=== PATIENT | male | born 1980 | race Caucasian/White ===

== ENCOUNTER 2017-10-08 06:42 | Emergency (ER) | payer BC, OTHER ==
[2017-10-08 07:14] LABS: Glucose,Whole Blood 319 mg/dL (75-99)
[2017-10-08] MEDS ORDERED: ACETAMINOPHEN TAB 500 MG TAB PO STA (07:31)
[2017-10-08] MEDS ORDERED: IBUPROFEN 600 MG TAB PO STA (07:32)
--- NOTE | 2017-10-08 07:52 | ED ---
General Adult HPI - General Chief complaint: Recheck/Abnormal Lab/Rx Stated complaint: diabetic issues, syncope Time Seen by Provider: 10/08/17 07:00 Source: patient, RN notes reviewed Mode of arrival: wheelchair Limitations: no limitations - History of Present Illness Initial comments: This is a 36-year-old male who presents emergency department with a history of diabetes. Patient comes in complaining that he woke up in the middle the night to feel good and at one point felt very lightheaded and almost passed out. Patient states she definitely did not pass out. Patient denies any chest pain difficulty breathing or shortness of breath. Patient denies any abdominal pain patient denies nausea vomiting diarrhea. Patient denies knowing that he has a fever even though here he does have a fever for 102.1 patient has no neck stiffness patient denies headache patient denies numbness or weakness patient states he got up and his sugar was all over the place but he thinks his meter isn't working. - Related Data Home Medications Medication Instructions Recorded Confirmed Insulin Regular, Human [Novolin R] 25 unit SQ HS 10/08/17 10/08/17 Allergies Allergy/AdvReac Type Severity Reaction Status Date / Time No Known Allergies Allergy Verified 10/08/17 07:14 Review of Systems ROS Statement: Those systems with pertinent positive or pertinent negative responses have been documented in the HPI. ROS Other: All systems not noted in ROS Statement are negative. Past Medical History Past Medical History: Asthma, Diabetes Mellitus History of Any Multi-Drug Resistant Organisms: None Reported Past Surgical History: No Surgical Hx Reported Past Psychological History: No Psychological Hx Reported Smoking Status: Never smoker Past Alcohol Use History: Occasional Past Drug Use History: None Reported General Exam - General Exam Comments Initial Comments: GENERAL: Patient is well-developed and well-nourished. Patient is nontoxic and well- hydrated and is in mild distress. ENT: Neck is soft and supple. No significant lymphadenopathy is noted. Oropharynx is clear. Moist mucous membranes. Neck has full range of motion without eliciting any pain. EYES: The sclera were anicteric and conjunctiva were pink and moist. Extraocular movements were intact and pupils were equal round and reactive to light. Eyelids were unremarkable. PULMONARY: Unlabored respirations. Good breath sounds bilaterally. No audible rales rhonchi or wheezing was noted. CARDIOVASCULAR: There is a regular rate and rhythm without any murmurs gallops or rubs. ABDOMEN: Soft and nontender with normal bowel sounds. No palpable organomegaly was noted. There is no palpable pulsatile mass. SKIN: Skin is clear with no lesions or rashes and otherwise unremarkable. NEUROLOGIC: Patient is alert and oriented x3. Cranial nerves II through XII are grossly intact. Motor and sensory are also intact. Normal speech, volume and content. Symmetrical smile. MUSCULOSKELETAL: Normal extremities with adequate strength and full range of motion. LYMPHATICS: No significant lymphadenopathy is noted PSYCHIATRIC: Normal psychiatric evaluation. Limitations: no limitations Course Vital Signs 10/08/17 10/08/17 10/08/17 06:46 08:39 09:32 Temperature 101 F H 102.0 F H 101.9 F H Pulse Rate 109 H 103 H 101 H Respiratory 20 18 18 Rate Blood Pressure 118/72 115/73 104/68 O2 Sat by Pulse 98 96 95 Oximetry Medical Decision Making - Medical Decision Making EKG shows sinus tachycardia [address] interval 228 QRS is 90 QT interval 334 QTC is 441. Patient's EKG shows no ST segment elevation or depression or T wave abnormalities are noted. I'll back into the room the patient was feeling considerably better and had no longer any symptoms of lightheadedness. Patient states he had no symptoms any recent fever or cough. Patient denies any nausea vomiting diarrhea per patient denies any rashes per patient denies any dysuria hematuria urinary frequency. - Lab Data Result diagrams: 10/08/17 08:05 10/08/17 08:05 Lab Results 10/08/17 10/08/17 10/08/17 Range/Units 06:55 08:05 08:05 WBC 11.3 H (3.8-10.6) k/uL RBC 5.05 (4.30-5.90) m/uL Hgb 15.0 (13.0-17.5) gm/dL Hct 43.5 (39.0-53.0) % MCV 86.3 (80.0-100.0) fL MCH 29.8 (25.0-35.0) pg MCHC 34.5 (31.0-37.0) g/dL RDW 12.4 (11.5-15.5) % Plt Count 223 (150-450) k/uL Neutrophils % 91 % Lymphocytes % 3 % Monocytes % 4 % Eosinophils % 2 % Basophils % 0 % Neutrophils # 10.2 H (1.3-7.7) k/uL Lymphocytes # 0.3 L (1.0-4.8) k/uL Monocytes # 0.5 (0-1.0) k/uL Eosinophils # 0.2 (0-0.7) k/uL Basophils # 0.0 (0-0.2) k/uL Sodium 137 (137-145) mmol/L Potassium 4.5 (3.5-5.1) mmol/L Chloride 103 (98-107) mmol/L Carbon Dioxide 24 (22-30) mmol/L Anion Gap 10 mmol/L BUN 20 (9-20) mg/dL Creatinine 0.82 (0.66-1.25) mg/dL Est GFR (CKD-EPI)AfAm >90 (>60 ml/min/1.73 sqM) Est GFR (CKD-EPI)NonAf >90 (>60 ml/min/1.73 sqM) Glucose 353 H (74-99) mg/dL POC Glucose (mg/dL) 319 H (75-99) mg/dL POC Glu Die Tripper ID Faith Fink Calcium 8.7 (8.4-10.2) mg/dL Total Bilirubin 0.4 (0.2-1.3) mg/dL AST 15 L (17-59) U/L ALT 29 (21-72) U/L Alkaline Phosphatase 74 (38-126) U/L Total Protein 6.9 (6.3-8.2) g/dL Albumin 4.0 (3.5-5.0) g/dL Influenza Type A RNA (Not Detectd) Influenza Type B (PCR) (Not Detectd) 10/08/17 10/08/17 Range/Units 08:05 08:57 WBC (3.8-10.6) k/uL RBC (4.30-5.90) m/uL Hgb (13.0-17.5) gm/dL Hct (39.0-53.0) % MCV (80.0-100.0) fL MCH (25.0-35.0) pg MCHC (31.0-37.0) g/dL RDW (11.5-15.5) % Plt Count (150-450) k/uL Neutrophils % % Lymphocytes % % Monocytes % % Eosinophils % % Basophils % % Neutrophils # (1.3-7.7) k/uL Lymphocytes # (1.0-4.8) k/uL Monocytes # (0-1.0) k/uL Eosinophils # (0-0.7) k/uL Basophils # (0-0.2) k/uL Sodium (137-145) mmol/L Potassium (3.5-5.1) mmol/L Chloride (98-107) mmol/L Carbon Dioxide (22-30) mmol/L Anion Gap mmol/L BUN (9-20) mg/dL Creatinine (0.66-1.25) mg/dL Est GFR (CKD-EPI)AfAm (>60 ml/min/1.73 sqM) Est GFR (CKD-EPI)NonAf (>60 ml/min/1.73 sqM) Glucose (74-99) mg/dL POC Glucose (mg/dL) 341 H (75-99) mg/dL POC Glu Die Tripper ID Edgard Vaughn Calcium (8.4-10.2) mg/dL Total Bilirubin (0.2-1.3) mg/dL AST (17-59) U/L ALT (21-72) U/L Alkaline Phosphatase (38-126) U/L Total Protein (6.3-8.2) g/dL Albumin (3.5-5.0) g/dL Influenza Type A RNA Not Detected (Not Detectd) Influenza Type B (PCR) Not Detected (Not Detectd) Disposition Clinical Impression: Viral syndrome, Dizziness Disposition: HOME SELF-CARE Condition: Good Instructions: Viral Syndrome (ED) Referrals: Julien Bernal MD [Primary Care Provider] - 1-2 days Time of Disposition: 09:43
--- NOTE | 2017-10-08 08:21 | XR ---
EXAMINATION TYPE: XR chest 2V DATE OF EXAM: 10/08/2017 COMPARISON: NONE HISTORY: Difficulty breathing TECHNIQUE: Frontal and lateral views of the chest are obtained. FINDINGS: There are overlying cardiac leads. Patchy basilar increased density at the left lung base is noted. No pneumothorax or pleural effusion. Heart size is small. Pulmonary vascularity and sydni ar e normal. There is bronchial wall thickening. IMPRESSION: Correlate for reactive airways disease or bronchitis, basilar atelectasis, follow-up rec ommended.
[2017-10-08 08:22] LABS: Basophils % (A) 0 %; Eosinophils # (A) 0.2 k/uL (0-0.7); Eosinophils % (A) 2 %; HCT 43.5 % (39.0-53.0); Lymphocytes # (A) 0.3 k/uL (1.0-4.8); Lymphocytes % (A) 3 %; MCH 29.8 pg (25.0-35.0); MCHC 34.5 g/dL (31.0-37.0); MCV 86.3 fL (80.0-100.0); Mean Platelet Volume 7.6; Monocytes # (A) 0.5 k/uL (0-1.0); Monocytes % (A) 4 %; Neutrophils # (A) 10.2 k/uL (1.3-7.7); Neutrophils % (A) 91 %; Platelet Count 223 k/uL (150-450); RBC 5.05 m/uL (4.30-5.90); RDW 12.4 % (11.5-15.5); WBC 11.3 k/uL (3.8-10.6)
[2017-10-08 08:39] VITALS: RESP 18
[2017-10-08 08:50] LABS: ALT 29 U/L (21-72); AST 15 U/L (17-59); Alkaline Phosphatase 74 U/L (38-126); Anion Gap 10 mmol/L; Blood Urea Nitrogen 20 mg/dL (9-20); Calcium 8.7 mg/dL (8.4-10.2); Carbon Dioxide 24 mmol/L (22-30); Chloride 103 mmol/L (98-107); Glucose 353 mg/dL (74-99); Potassium 4.5 mmol/L (3.5-5.1); Sodium 137 mmol/L (137-145); Total Bilirubin 0.4 mg/dL (0.2-1.3); Total Protein 6.9 g/dL (6.3-8.2)
[2017-10-08 09:00] LABS: Glucose,Whole Blood 341 mg/dL (75-99)
[2017-10-08] MEDS ORDERED: INSULIN ASPART 100 UNIT/ML 1 ML 10 ML VIAL SQ ONE (09:15)
[2017-10-08 09:51] LABS: Glucose,Whole Blood 313 mg/dL (75-99)
[2017-10-08 10:34] VITALS: BP 110/70; PULSE 90; TEMP 98.3
== END 2017-10-08 10:40 | disposition home or self-care (01) ==
LOC: EC 06:42
DX: B34.9 Viral infection, unspecified (principal); R42 Dizziness and giddiness; R00.0 Tachycardia, unspecified; E11.9 Type 2 diabetes mellitus without complications; Z79.4 Long term (current) use of insulin
CPT/HCPCS: 36415; 71046; 80053; 85025; 87502; 93005; 99284

== ENCOUNTER → 2020-01-21 | Outpatient (CLI) | payer BC ==
--- NOTE | 2020-01-21 15:19 | XR ---
Bilateral hips HISTORY: Right hip pain, bilateral hip pain 2 views of each hip are submitted. Bone mineralization, joint spaces and alignment are maintained. IMPRESSION: Normal hips.
--- NOTE | 2020-01-21 15:20 | XR ---
Bilateral knees HISTORY: Pain For views of each knee are submitted. Bone mineralization, joint spaces and alignment are maintained. No evident joint effusion. IMPRESSION: Normal knees.
== END | disposition home or self-care (01) ==
LOC: RADXRMAIN 13:40
PROVIDERS: ATTEND Family Medicine
DX: M25.551 Pain in right hip (principal); M25.562 Pain in left knee
CPT/HCPCS: 73521

== ENCOUNTER 2021-04-26 08:17 | Day surgery (SDC) | payer OTHER ==
[2021-04-25 08:45] VITALS: BMI 26.4
[2021-04-26] MEDS ORDERED: LIDOCAINE 1% (10MG/ML) FOR IV START INTRADERMA ONE (08:37)
[2021-04-26 08:57] VITALS: RESP 16; TEMP 97.1
[2021-04-26] MEDS ORDERED: LACTATED RINGERS 1,000 ML IV ONE (08:58)
[2021-04-26 09:00] LABS: Glucose,Whole Blood 108 mg/dL (75-99)
[2021-04-26] MEDS ORDERED: MIDAZOLAM 2 MG/2 ML VIAL ONE (09:04)
[2021-04-26] MEDS ORDERED: fentaNYL (PF) 50 MCG/ML 2 ML AMP ONE (09:04)
[2021-04-26] MEDS ORDERED: LACTATED RINGERS 1,000 ML IV SCH (09:15)
[2021-04-26 10:01] VITALS: BP 146/74; PULSE 68
[2021-04-26] MEDS ORDERED: IV FLUID CONTINUATION 1,000 ML IV ONE (10:01)
[2021-04-26 10:44] LABS: Glucose,CSF 65 mg/dL (40-70); Total Protein,CSF 110 mg/dL (12-60)
[2021-04-26 10:46] LABS: ALT 14 U/L (4-49)
[2021-04-26 11:26] LABS: AST 29 U/L (17-59)
--- NOTE | 2021-04-26 13:29 | P.PCN ---
Date of Procedure: 04/26/21 Description of Procedure: Procedure: 1. Lumbar puncture for CSF collection PREOPERATIVE DIAGNOSIS: Abnormal MRI to rule out multiple sclerosis POSTOPERATIVE DIAGNOSIS: Abnormal MRI results to rule out multiple sclerosis SURGEON: Bijan Lucas ANESTHESIA: Local with 1% lidocaine, and IV sedation : Versed and fentanyl EBL: None. Specimen removed: 3 mL of CSF in each collecting tube X4 PROCEDURE INDICATION: The patient had history of patient MRI showed abnormal findings suspicious of multiple sclerosis . Consulted for lumbar puncture for CSF collection send it for analysis. PROCEDURE DESCRIPTION: The patient was seen and identified. Risks, benefits, complications, and alternatives were discussed with the patient. The patient agreed to proceed with the procedure and signed the consent, and vital signs were stable. Patient was taken to the procedure area, and time out was completed. The patient was placed in sitting position on procedure. . The lumbosacral area was prepped and draped in the usual sterile fashion. Critical pause was taken. Vital signs were closely monitored during the procedure. Posterior superior iliac crest landmarks was identified . The midline lumbar space also identified. Approximately at the level of L4-L5 interspinous space, skin and deeper tissues were localized with 5 mL of 1% lidocaine. Using a 22 gauge 3.5 spinal needle entered into subarachnoid space, with 1 attempt. Clear CSF came out of the spinal needle. 3 mL of CSF fluid collected in each tube 4. Needle was withdrawn intact, skin was cleansed, and bandages were applied. COMPLICATIONS: None. DISPOSITION / PLANS: The patient was placed in a supine position and transferred to the recovery area in a stable condition for observation. Patient was discharged from the recovery room after meeting discharge criteria. Home discharge instructions given to the patient by the staff. The patient was reexamined prior to discharge.
[2021-04-26 14:26] LABS: Appearance,CSF Hazy; CSF Tube Number 3
[2021-04-26 14:27] LABS: CSF Tube Volume 3; Nucleated Cells, CSF 0 u/L (0-5); Red Blood Cell,CSF 1350 u/L (0-10)
[2021-04-26 14:28] LABS: Red Blood Cell, CSF Crenated 0 %; Red Blood Cell, CSF Fresh 100 %
[2021-04-27 06:36] LABS: Rheumatoid Factor, Qnt <10 IU/mL (0-15)
[2021-04-27 13:19] LABS: IgG - CSF 21.7 mg/dL (0.0 - 3.4); IgG Synthesis Rate 71.97 mg/day (0.00 - 3.00); IgG/Albumin Index (CSF) 1.58 (0.00 - 0.77)
[2021-04-29 11:23] LABS: VDRL, Qualitative CSF Nonreactive (Nonreactive)
== END 2021-04-26 10:06 | disposition home or self-care (01) ==
LOC: ORPAIN 08:17
DX: R94.02 Abnormal brain scan (principal)
CPT/HCPCS: 86592; 86235 ×3; 88108; 84157; 82945; 82040; 82042; 82784; 83916; 84436; 84443; 84450; 84460; 86431; 89050; 86618; 86780; 86038; 86225; 87801; 62270; J2250; J3010; 99152; 99153

== ENCOUNTER 2021-04-29 09:22 | Emergency (ER) | payer OTHER ==
[2021-04-29] MEDS ORDERED: diphenhydrAMINE 50 MG/ML 1 ML VIAL IVP STA (10:01)
[2021-04-29] MEDS ORDERED: METOCLOPRAMIDE 5 MG/ML 2 ML VIAL IVP STA (10:01)
[2021-04-29] MEDS ORDERED: CAFFEINE-SODIUM BENZOATE 1,000 MG in SODIUM CHLORIDE 0.9% 1,000 ML IVPB ONE (10:30)
--- NOTE | 2021-04-29 10:44 | ED ---
Headache HPI - General Chief Complaint: Headache Stated Complaint: Neck Pain Time Seen by Provider: 04/29/21 09:48 Source: RN notes reviewed Mode of arrival: ambulatory Limitations: no limitations - History of Present Illness Initial Comments: Is a 40-year-old male presents emergency Department chief complaint of headache. Patient states that he is a lumbar puncture on Sunday he states he had does to rule out MS Patient states that he started having a headache and some back discomfort yesterday states it is worse when he sits up he states last sent the headache was more persistent. No fevers or chills no night sweats he did not contact anesthesiologist who performed the procedure. Patient denies any vomiting slight nausea no other complaints. - Related Data Home Medications Medication Instructions Recorded Confirmed Insulin Glargine,Hum.rec.anlog 30 unit SQ QAM 04/25/21 04/26/21 [Basaglar Parmjitpen U-100] Allergies Allergy/AdvReac Type Severity Reaction Status Date / Time No Known Allergies Allergy Verified 04/29/21 09:30 Review of Systems ROS Statement: Those systems with pertinent positive or pertinent negative responses have been documented in the HPI. ROS Other: All systems not noted in ROS Statement are negative. Past Medical History Past Medical History: Asthma, Diabetes Mellitus Additional Past Medical History / Comment(s): past hx of asthma (no current rx)., states recently hospitalized at [facility] for cold sensation in face & arm that comes and goes-states possible M.S. History of Any Multi-Drug Resistant Organisms: None Reported Past Surgical History: No Surgical Hx Reported Past Anesthesia/Blood Transfusion Reactions: Motion Sickness Additional Past Anesthesia/Blood Transfusion Reaction / Comment(s): no anesthesia hx Past Psychological History: No Psychological Hx Reported Smoking Status: Former smoker Past Alcohol Use History: Occasional Past Drug Use History: None Reported - Past Family History Mother Family Medical History: No Reported History General Exam Limitations: no limitations General appearance: alert, in no apparent distress Head exam: Present: atraumatic, normocephalic, normal inspection Eye exam: Present: normal appearance, PERRL, EOMI. Absent: scleral icterus, conjunctival injection, periorbital swelling ENT exam: Present: normal exam, normal oropharynx, mucous membranes moist Neck exam: Present: normal inspection, full ROM. Absent: tenderness, meningismus, lymphadenopathy Respiratory exam: Present: normal lung sounds bilaterally. Absent: respiratory distress, wheezes, rales, rhonchi, stridor Cardiovascular Exam: Present: regular rate, normal rhythm, normal heart sounds. Absent: systolic murmur, diastolic murmur, rubs, gallop, clicks Neurological exam: Present: alert, oriented X3, CN II-XII intact, reflexes normal. Absent: motor sensory deficit Skin exam: Present: warm, dry, intact, normal color. Absent: rash Course Vital Signs 04/29/21 04/29/21 09:27 12:00 Temperature 98 F Pulse Rate 81 86 Respiratory 20 18 Rate Blood Pressure 137/93 132/82 O2 Sat by Pulse 99 98 Oximetry Medical Decision Making - Medical Decision Making 40-year-old male presented for headache after LP. Patient was given IV fluids, IV caffeine, Benadryl Reglan symptoms have completely resolved he has no headache no neurological deficits will be discharged in stable condition. - Lab Data Result diagrams: 04/29/21 10:27 Lab Results 04/29/21 Range/Units 10:27 WBC 12.0 H (3.8-10.6) k/uL RBC 4.69 (4.30-5.90) m/uL Hgb 14.6 (13.0-17.5) gm/dL Hct 43.6 (39.0-53.0) % MCV 92.9 (80.0-100.0) fL MCH 31.2 (25.0-35.0) pg MCHC 33.6 (31.0-37.0) g/dL RDW 12.6 (11.5-15.5) % Plt Count 265 (150-450) k/uL MPV 8.2 Neutrophils % 77 % Lymphocytes % 15 % Monocytes % 4 % Eosinophils % 3 % Basophils % 1 % Neutrophils # 9.2 H (1.3-7.7) k/uL Lymphocytes # 1.8 (1.0-4.8) k/uL Monocytes # 0.5 (0-1.0) k/uL Eosinophils # 0.3 (0-0.7) k/uL Basophils # 0.1 (0-0.2) k/uL Disposition Clinical Impression: Headache Disposition: HOME SELF-CARE Condition: Stable Instructions (If sedation given, give patient instructions): Acute Headache (ED) Additional Instructions: Please return to the Emergency Department if symptoms worsen or any other concerns. Is patient prescribed a controlled substance at d/c from ED?: No Referrals: Julien Bernal MD [Primary Care Provider] - 1-2 days Time of Disposition: 12:33
[2021-04-29 11:05] LABS: Basophils # (A) 0.1 k/uL (0-0.2); Basophils % (A) 1 %; Eosinophils # (A) 0.3 k/uL (0-0.7); Eosinophils % (A) 3 %; HCT 43.6 % (39.0-53.0); HGB 14.6 gm/dL (13.0-17.5); Lymphocytes # (A) 1.8 k/uL (1.0-4.8); Lymphocytes % (A) 15 %; MCH 31.2 pg (25.0-35.0); MCHC 33.6 g/dL (31.0-37.0); MCV 92.9 fL (80.0-100.0); Mean Platelet Volume 8.2; Monocytes # (A) 0.5 k/uL (0-1.0); Monocytes % (A) 4 %; Neutrophils # (A) 9.2 k/uL (1.3-7.7); Neutrophils % (A) 77 %; Platelet Count 265 k/uL (150-450); RBC 4.69 m/uL (4.30-5.90); RDW 12.6 % (11.5-15.5)
[2021-04-29] MEDS ORDERED: KETOROLAC 15 MG/ML 1 ML VIAL IVP STA (11:44)
[2021-04-29 12:23] VITALS: BP 132/82; PULSE 86; RESP 18
[2021-04-29 13:02] VITALS: TEMP 98.2
== END 2021-04-29 12:55 | disposition home or self-care (01) ==
LOC: EC 09:22
DX: R51.9 Headache, unspecified (principal); M54.9 Dorsalgia, unspecified; E11.9 Type 2 diabetes mellitus without complications; J45.909 Unspecified asthma, uncomplicated; Z79.4 Long term (current) use of insulin; Z87.891 Personal history of nicotine dependence
CPT/HCPCS: 36415; 85025; 99283; 96365; 96375; J1200; J2765

== ENCOUNTER 2022-05-06 11:56 | Emergency (ER) | payer OTHER ==
[2022-05-06] MEDS ORDERED: KETOROLAC 15 MG/ML 1 ML VIAL IVP STA (13:04)
[2022-05-06] MEDS ORDERED: SODIUM CHLORIDE 0.9% 500 ML 500 ML IV ONE (13:04)
[2022-05-06 14:00] LABS: Appearance,Urine Clear (Clear); Basophils # (A) 0.1 k/uL (0-0.2); Basophils % (A) 1 %; Bilirubin,Urine Negative (Negative); Blood,Urine Negative (Negative); Color,Urine Light Yellow; Eosinophils # (A) 0.3 k/uL (0-0.7); Eosinophils % (A) 3 %; Glucose,Urine (UA) Negative (Negative); HCT 42.2 % (39.0-53.0); HGB 14.6 gm/dL (13.0-17.5); Ketones,Urine Negative (Negative); Leukocyte Esterase,Urine Negative (Negative); Lymphocytes # (A) 0.8 k/uL (1.0-4.8); Lymphocytes % (A) 10 %; MCH 31.2 pg (25.0-35.0); MCHC 34.7 g/dL (31.0-37.0); MCV 89.9 fL (80.0-100.0); Mean Platelet Volume 8.6; Monocytes # (A) 0.5 k/uL (0-1.0); Monocytes % (A) 6 %; Neutrophils # (A) 6.3 k/uL (1.3-7.7); Neutrophils % (A) 77 %; Nitrite,Urine Negative (Negative); Platelet Count 222 k/uL (150-450); Protein,Urine Negative (Negative); RBC 4.69 m/uL (4.30-5.90); RDW 12.8 % (11.5-15.5); Specific Gravity,Urine 1.013 (1.001-1.035); Urobilinogen,Urine <2.0 mg/dL (<2.0); WBC 8.2 k/uL (3.8-10.6)
[2022-05-06 14:10] LABS: ALT 24 U/L (4-49); AST 21 U/L (17-59); African American GFR (CKD) >90 (>60 ml/min/1.73 sqM); Albumin 4.8 g/dL (3.5-5.0); Alkaline Phosphatase 61 U/L (38-126); Anion Gap 12 mmol/L; Blood Urea Nitrogen 12 mg/dL (9-20); Calcium 8.7 mg/dL (8.4-10.2); Carbon Dioxide 24 mmol/L (22-30); Chloride 103 mmol/L (98-107); Glucose 85 mg/dL (74-99); Non-African American GFR(CKD) >90 (>60 ml/min/1.73 sqM); Potassium 4.2 mmol/L (3.5-5.1); Sodium 139 mmol/L (137-145); Total Bilirubin 0.5 mg/dL (0.2-1.3); Total Protein 7.9 g/dL (6.3-8.2)
--- NOTE | 2022-05-06 14:14 | ED ---
General Adult HPI - General Chief complaint: Back Pain/Injury Stated complaint: pain Time Seen by Provider: 05/06/22 12:32 Source: patient Mode of arrival: ambulatory Limitations: no limitations - History of Present Illness Initial comments: 41 year-old male patient presents for reports of generalized pain. States it started on as an ache in his lower back. Then he started to have pain in his knees and hips. States now the pain is generalized, across his chest, his skin feels tender, and his hands hurt. He states he did have chills last night. Denies any known fever, sore throat, nasal congestion, or cough. Denies any nausea, vomiting, or difficulty eating. States he did take Tylenol last night without much relief. He does have history of MS and has been taking Dimethyl Fumarate for the last 6 months. These symptoms are not typical of his usual MS symptoms which usually includes ataxia and incoordination. Patient denies any recent rash, abdominal pain, diarrhea, constipation, numbness, tingling, dizziness, weakness, hematuria, dysuria, urinary urgency, urinary frequency, visual changes, or any other complaints. - Related Data Home Medications Medication Instructions Recorded Confirmed Insulin Glargine,Hum.rec.anlog 30 unit SQ QAM 04/25/21 04/26/21 [Basaglar Kwikpen U-100] Previous Rx's Medication Instructions Recorded Ibuprofen [Motrin] 600 mg PO Q8HR PRN #30 tab 05/06/22 Allergies Allergy/AdvReac Type Severity Reaction Status Date / Time No Known Allergies Allergy Verified 05/06/22 12:15 Review of Systems ROS Statement: Those systems with pertinent positive or pertinent negative responses have been documented in the HPI. ROS Other: All systems not noted in ROS Statement are negative. Past Medical History Past Medical History: Asthma, Diabetes Mellitus Additional Past Medical History / Comment(s): past hx of asthma (no current rx)., states recently hospitalized at [facility] in [place] for cold sensation in face & arm that comes and goes-states possible M.S. History of Any Multi-Drug Resistant Organisms: None Reported Past Surgical History: No Surgical Hx Reported Past Anesthesia/Blood Transfusion Reactions: Motion Sickness Additional Past Anesthesia/Blood Transfusion Reaction / Comment(s): no anesthesia hx Past Psychological History: No Psychological Hx Reported Smoking Status: Former smoker Past Alcohol Use History: Occasional Past Drug Use History: None Reported - Past Family History Mother Family Medical History: No Reported History General Exam Limitations: no limitations General appearance: alert, in no apparent distress, other (This is a well- developed, well-nourished adult male in no acute distress.) Eye exam: Present: normal appearance, PERRL, EOMI. Absent: scleral icterus, conjunctival injection, periorbital swelling ENT exam: Present: normal exam, normal oropharynx, mucous membranes moist Respiratory exam: Present: normal lung sounds bilaterally. Absent: respiratory distress, wheezes, rales, rhonchi, stridor Cardiovascular Exam: Present: regular rate, normal rhythm, normal heart sounds. Absent: systolic murmur, diastolic murmur, rubs, gallop, clicks GI/Abdominal exam: Present: soft, normal bowel sounds. Absent: distended, tenderness, guarding, rebound, rigid Back exam: Present: normal inspection. Absent: vertebral tenderness Neurological exam: Present: alert, oriented X3, CN II-XII intact Psychiatric exam: Present: normal affect, normal mood Skin exam: Present: warm, dry, intact, normal color. Absent: rash Course Vital Signs 05/06/22 05/06/22 05/06/22 12:15 14:33 16:02 Temperature 98.8 F 99.3 F Pulse Rate 79 80 84 Respiratory 16 18 16 Rate Blood Pressure 122/78 124/73 120/73 O2 Sat by Pulse 99 100 100 Oximetry EKG Findings - EKG Comments: EKG Findings:: EKG obtained at 1355 shows sinus rhythm with a rate of 76, [place] interval 139, QRS duration 106, QT 360, QTC 391. No evidence of ST elevation or depression. Medical Decision Making - Medical Decision Making 41-year-old male patient presented to the emergency department today reporting generalized body pain and joint pain. Started on and worsened through to today. He does have history of MS. These symptoms are not consistent with his usual MS symptoms. Labs reviewed and are unremarkable. Chest x-ray negativ e. Covid test negative. Did discuss possibility of MS exacerbation though symptoms are atypical. Discussed risks versus benefits of high-dose corticosteroids for relapse, review shared decision making and decided against using steroids at this time. He will contact his neurologist on Sunday to uss his symptoms. He is discharged home with prescription for ibuprofen given starter packs. Return parameters were discussed in detail. He verbalizes understanding and feels comfortable with discharge. My attending is Dr. Lind. - Lab Data Result diagrams: 05/06/22 13:44 05/06/22 13:44 Lab Results 05/06/22 05/06/22 05/06/22 Range/Units 12:33 13:44 13:44 WBC 8.2 (3.8-10.6) k/uL RBC 4.69 (4.30-5.90) m/uL Hgb 14.6 (13.0-17.5) gm/dL Hct 42.2 (39.0-53.0) % MCV 89.9 (80.0-100.0) fL MCH 31.2 (25.0-35.0) pg MCHC 34.7 (31.0-37.0) g/dL RDW 12.8 (11.5-15.5) % Plt Count 222 (150-450) k/uL MPV 8.6 Neutrophils % 77 % Lymphocytes % 10 % Monocytes % 6 % Eosinophils % 3 % Basophils % 1 % Neutrophils # 6.3 (1.3-7.7) k/uL Lymphocytes # 0.8 L (1.0-4.8) k/uL Monocytes # 0.5 (0-1.0) k/uL Eosinophils # 0.3 (0-0.7) k/uL Basophils # 0.1 (0-0.2) k/uL Sodium (137-145) mmol/L Potassium (3.5-5.1) mmol/L Chloride (98-107) mmol/L Carbon Dioxide (22-30) mmol/L Anion Gap mmol/L BUN (9-20) mg/dL Creatinine (0.66-1.25) mg/dL Est GFR (CKD-EPI)AfAm (>60 ml/min/1.73 sqM) Est GFR (CKD-EPI)NonAf (>60 ml/min/1.73 sqM) Glucose (74-99) mg/dL Calcium (8.4-10.2) mg/dL Total Bilirubin (0.2-1.3) mg/dL AST (17-59) U/L ALT (4-49) U/L Alkaline Phosphatase (38-126) U/L Troponin I (0.000-0.034) ng/mL Total Protein (6.3-8.2) g/dL Albumin (3.5-5.0) g/dL Urine Color Light Yellow Urine Appearance Clear (Clear) Urine pH 6.0 (5.0-8.0) Ur Specific [place] 1.013 (1.001-1.035) Urine Protein Negative (Negative) Urine Glucose (UA) Negative (Negative) Urine Ketones Negative (Negative) Urine Blood Negative (Negative) Urine Nitrite Negative (Negative) Urine Bilirubin Negative (Negative) Urine Urobilinogen <2.0 (<2.0) mg/dL Ur Leukocyte Esterase Negative (Negative) Coronavirus (PCR) Not Detected (Not Detectd) 05/06/22 05/06/22 Range/Units 13:44 13:44 WBC (3.8-10.6) k/uL RBC (4.30-5.90) m/uL Hgb (13.0-17.5) gm/dL Hct (39.0-53.0) % MCV (80.0-100.0) fL MCH (25.0-35.0) pg MCHC (31.0-37.0) g/dL RDW (11.5-15.5) % Plt Count (150-450) k/uL MPV Neutrophils % % Lymphocytes % % Monocytes % % Eosinophils % % Basophils % % Neutrophils # (1.3-7.7) k/uL Lymphocytes # (1.0-4.8) k/uL Monocytes # (0-1.0) k/uL Eosinophils # (0-0.7) k/uL Basophils # (0-0.2) k/uL Sodium 139 (137-145) mmol/L Potassium 4.2 (3.5-5.1) mmol/L Chloride 103 (98-107) mmol/L Carbon Dioxide 24 (22-30) mmol/L Anion Gap 12 mmol/L BUN 12 (9-20) mg/dL Creatinine 0.81 (0.66-1.25) mg/dL Est GFR (CKD-EPI)AfAm >90 (>60 ml/min/1.73 sqM) Est GFR (CKD-EPI)NonAf >90 (>60 ml/min/1.73 sqM) Glucose 85 (74-99) mg/dL Calcium 8.7 (8.4-10.2) mg/dL Total Bilirubin 0.5 (0.2-1.3) mg/dL AST 21 (17-59) U/L ALT 24 (4-49) U/L Alkaline Phosphatase 61 (38-126) U/L Troponin I <0.012 (0.000-0.034) ng/mL Total Protein 7.9 (6.3-8.2) g/dL Albumin 4.8 (3.5-5.0) g/dL Urine Color Urine Appearance (Clear) Urine pH (5.0-8.0) Ur Specific [place] (1.001-1.035) Urine Protein (Negative) Urine Glucose (UA) (Negative) Urine Ketones (Negative) Urine Blood (Negative) Urine Nitrite (Negative) Urine Bilirubin (Negative) Urine Urobilinogen (<2.0) mg/dL Ur Leukocyte Esterase (Negative) Coronavirus (PCR) (Not Detectd) - Radiology Data Radiology results: report reviewed, image reviewed Two-view x-ray of the chest is obtained. Report is reviewed in its entirety. Impression by Dr. Ro shows no acute cardio pulmonary disease/process. Disposition Clinical Impression: Joint pain, Body aches Disposition: HOME SELF-CARE Condition: Good Instructions (If sedation given, give patient instructions): Arthralgia (ED) Additional Instructions: Take medications as directed. Contact her neurologist on Sunday to inform them of your new symptoms. Rest. Return to the emergency department for any new, worsening, or concerning symptoms. Prescriptions: Ibuprofen [Motrin] 600 mg PO Q8HR PRN #30 tab PRN Reason: Pain Is patient prescribed a controlled substance at d/c from ED?: No Referrals: Julien Bernal MD [Primary Care Provider] - 1-2 days Time of Disposition: 15:46
[2022-05-06] MEDS ORDERED: ONDANSETRON 4 MG/2 ML VIAL IVP STA (14:58)
[2022-05-06] MEDS ORDERED: MORPHINE SULFATE 4 MG/ML SYRINGE IVP STA (14:58)
--- NOTE | 2022-05-06 15:14 | XR ---
EXAMINATION TYPE: XR chest 2V DATE OF EXAM: 05/06/2022 2:41 PM COMPARISON: Chest x-ray 10/09/20192017 TECHNIQUE: XR chest 2V . CLINICAL INDICATION:Male, 41 years old with history of Body aches; Chills; Chest pain; FINDINGS: Lungs/Pleura: There is no evidence of pleural effusion, focal consolidation, or pneumothorax. Pulmonary vascularity: Unremarkable. Heart/mediastinum: Cardiomediastinal silhouette is unremarkable. Musculoskeletal: No acute osseous pathology. IMPRESSION: No acute cardiopulmonary disease/process.
[2022-05-06] MEDS ORDERED: ACET/COD 300 MG/30 MG STARTER PACK 6 TAB BTL PO STA (15:46)
[2022-05-06] MEDS ORDERED: CYCLOBENZAPRINE 10MG STARTER 3 TAB BTL PO STA (15:46)
[2022-05-06 16:05] VITALS: BP 120/73; PULSE 84; RESP 16; TEMP 99.3
== END 2022-05-06 16:04 | disposition home or self-care (01) ==
LOC: EC 11:56
DX: M25.551 Pain in right hip (principal); M25.552 Pain in left hip; M25.561 Pain in right knee; M25.562 Pain in left knee; J45.909 Unspecified asthma, uncomplicated; E11.9 Type 2 diabetes mellitus without complications; Z79.4 Long term (current) use of insulin; Z87.891 Personal history of nicotine dependence; Z20.822 Contact with and (suspected) exposure to COVID-19
CPT/HCPCS: 36415; 93005; 80053; 84484; 85025; 81003; 87635; 71046; 99284; 96374; 96361; 96375; J2270; J2405; J1885

== ENCOUNTER → 2023-08-23 | Outpatient (CLI) | payer OTHER ==
--- NOTE | 2023-08-24 10:45 | MR ---
EXAMINATION TYPE: MR shoulder LT wo con DATE OF EXAM: 08/23/2023 COMPARISON: Outside radiograph 07/02/2023 HISTORY: 42-year-old male M25.512, LEFT SHOULDER PAIN WHEN RAISING HIS ARM ABOVE HIS HEAD X2 MONTHS TECHNIQUE: Multiplanar, multisequence imaging of the left shoulder is performed without contrast. FINDINGS: The long head biceps tendon appears intact and appropriately situated along the bicipital groove. The subscapularis tendon is intact. AC joint is intact. Only minimal capsular hypertrophy is noted. Both supraspinatus and infraspinatus tendons are intact. No atrophy of the rotator cuff musculature. Trace fluid within the subacromial bursa. There is a tear of the superior labrum that extends to the posterior aspect of the superior labrum an d may swelling around to involve the anterior and inferior labrum as well. There is an definite meniscus thickening of the axillary recess. Additional edematous soft tissue rep lacement of the rotator cuff interval. The glenohumeral joint is intact. No significant joint effusion. No Hill-Sachs deformity or os acromiale. No suspicious bone marrow replacement. There is patchy red m arrow which can be seen with anemia, obesity, smoking, chronic disease. IMPRESSION: 1. No rotator cuff tear. 2. Findings suggest underlying labral tear. This may swing around 180 degrees from the superior labru m and anteriorly down to the inferior labrum. 3. Edematous soft tissue thickening at the axillary recess. Given the presence of edematous soft tiss ue replacement in the rotator cuff interval as well, consider adhesive capsulitis. Superior and infer ior glenoid humeral ligament sprains would be the alternative consideration.
== END | disposition home or self-care (01) ==
LOC: RADMRIMAIN 12:51
PROVIDERS: ATTEND Orthopaedic Surgery
DX: M25.512 Pain in left shoulder (principal); R60.0 Localized edema

== ENCOUNTER 2023-09-14 08:42 | Day surgery (SDC) | payer OTHER ==
[2023-09-11 15:18] VITALS: BMI 27.8
--- NOTE | 2023-09-13 10:29 | P.HPOR ---
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 He notes its worsening. He tried medications along with therapy without sig nificant relief. Review of Systems Per HPI Past Medical History Past Medical History: Asthma, Diabetes Mellitus Additional Past Medical History / Comment(s): past hx of asthma (no current rx)., MS, FROZEN LT SHOULDER History of Any Multi-Drug Resistant Organisms: None Reported Past Surgical History: No Surgical Hx Reported Past Anesthesia/Blood Transfusion Reactions: Motion Sickness Additional Past Anesthesia/Blood Transfusion Reaction / Comment(s): no anesthesia hx Smoking Status: Former smoker - Past Family History Mother Family Medical History: No Reported History Medications and Allergies Home Medications Medication Instructions Recorded Confirmed Type Cyanocobalamin (Vitamin B-12) 2,500 mcg PO DAILY 09/11/23 09/11/23 History [Vitamin B-12] Dimethyl Fumarate 240 mg PO BID 09/11/23 09/11/23 History Insulin Degludec [Tresiba] 30 units SQ DAILY 09/11/23 09/11/23 History Allergies Allergy/AdvReac Type Severity Reaction Status Date / Time No Known Allergies Allergy Verified 09/11/23 14:57 Physical Examination - Shoulder left Tenderness with palpation: anterior, bicipital groove Pain: with abduction, with forward flexion ROM: forward flexion: 100 degrees (Active and passive) ROM: internal rotation: lower lumbar ROM: external rotation: 50 degrees Strength: abduction: 5/5 Strength: forward flexion: 5/5 Strength: external rotation: 5/5 Tests: internal impingement tests: positive, external impingment tests: positive Results She is a well-developed well-nourished male proximal 6 foot tall, 204 pounds a mesomorphic habits. HEENT exam is nonfocal, neck supple. He is tender about the left shoulder anterior. He has limited passive range of motion. Hills, Neer sign, and speed test are positive. His distal neurovascular exam appears intact in the left upper extremity. - Diagnostic results Shoulder MRI: image reviewed (MRI of the left shoulder shows no definite rotator cuff tear.) Assessment and Plan Assessment: Left shoulder adhesive capsulitis Insulin-dependent diabetes Plan: I talked to the patient length regarding his condition along with treatment options. At this point is quite symptomatic and limited because of pain and stiffness. After a thorough discussion he opts to proceed with manipulation under anesthesia of the left shoulder with a subacromial cortisone injection. Risks and benefits were discussed at length in layman's terms.
[~2023-09-14 08:42] MED LIST: MIDAZOLAM 2 MG/2 ML VIAL IV PRN; SCOPOLAMINE 1 MG/72 HR PATCH TRANSDERM ONE
[2023-09-14 09:28] LABS: Glucose,Whole Blood 130 mg/dL (70-110)
[2023-09-14] MEDS: ONDANSETRON 4 MG/2 ML VIAL IVP ONE (09:34)
[2023-09-14] MEDS: LACTATED RINGERS 1,000 ML IV SCH (09:34)
[2023-09-14] MEDS: DEXAMETHASONE SOD PHOSPHATE 4 MG/ML 1 ML VIAL IV ONE (09:34)
[2023-09-14 09:56] VITALS: RESP 16
[2023-09-14] MEDS ORDERED: PROPOFOL 10 MG/ML 20 ML VIAL IV ONE (10:02)
[2023-09-14] MEDS ORDERED: MIDAZOLAM 2 MG/2 ML VIAL ONE (10:02)
[2023-09-14] MEDS: methylPREDNISolone ACETATE 80 MG/ML 1 ML VIAL MISCELLANE ONE (10:07)
[2023-09-14] MEDS: BUPIVACAINE (PF) 0.25% 30 ML VIAL MISCELLANE ONE (10:07)
--- NOTE | 2023-09-14 10:13 | P.OP ---
Date of Procedure: 09/14/23 Preoperative Diagnosis: Left shoulder adhesive capsulitis Postoperative Diagnosis: Same Procedure(s) Performed: Manipulation under anesthesia left shoulder/left shoulder subacromial cortisone injection Anesthesia: MAC Surgeon: Luis A Herron Estimated Blood Loss (ml): 0 Pathology: none sent Condition: stable Disposition: PACU Indications for Procedure: The patient's a 42-year-old male who presents with persistent/progressive left shoulder pain and stiffness despite conservative measures. Clinically he was noted of evidence of significant adhesive capsulitis. A discussion of the risks and benefits of manipulation under anesthesia with subacromial cortisone injection was made with the patient. He opted to proceed. Risks of the procedure to include fracture, recurrence of stiffness, and possible need for subsequent procedures was discussed. Informed consent was obtained. Operative Findings: As below Description of Procedure: The patient was brought to the recovery room, and after induction of IV sedation the left shoulder was gently manipulated first with the arm at the side obtaining full external rotation. Moderate adhesions were encountered. I then obtained full forward elevation. Again moderate adhesions were encountered. I felt that adequate release at this point. The posterior shoulder was prepped with ChloraPrep. 40 mg of Depo-Medrol and 5 mL of quarter percent plain Marcaine was then injected into the subacromial space. The patient was then monitored until fully awake. No complications were incurred. There was no blood loss.
[2023-09-14] MEDS: HYDROmorphone 0.5 MG/0.5 ML SYRINGE IVP PRN (10:28)
[2023-09-14 10:29] VITALS: TEMP 98
[2023-09-14 10:34] LABS: Glucose,Whole Blood 137 mg/dL (70-110)
[2023-09-14] MEDS: HYDROmorphone 0.5 MG/0.5 ML SYRINGE IVP ONE (10:37)
[2023-09-14 11:33] VITALS: BP 143/81; PULSE 60
== END 2023-09-14 11:42 | disposition home or self-care (01) ==
LOC: OR 08:42
PROVIDERS: ATTEND Orthopaedic Surgery
DX: M75.02 Adhesive capsulitis of left shoulder (principal); J45.909 Unspecified asthma, uncomplicated; E11.9 Type 2 diabetes mellitus without complications; Z98.890 Other specified postprocedural states; Z87.891 Personal history of nicotine dependence; Z79.899 Other long term (current) drug therapy
CPT/HCPCS: 23700; J2250; J1040; J1100; J2405; J2704; J1170; J0665